=== PATIENT | female | born 1945 | race African-American/Black ===

== ENCOUNTER 2016-11-07 10:17 | Emergency (ER) | payer MEDICARE, OTHER ==
--- NOTE | ~2016-11-07 | EKG ---
PATIENT: MARCO PATIÑO UNIT #: [id number] Ventricular Rate: 73 BPM Atrial Rate: 73 BPM P-R Interval: 242 ms QRS Duration: 100 ms Q-T Interval: 416 ms QTC Calculation(Bezet): 458 ms P [place]: 67 degrees Calculated R [place]: -55 degrees Calculated T [place]: 159 degrees Diagnosis Line: Sinus rhythm with 1st degree A-V block with Diagnosis Line: Premature ventricular complexes Diagnosis Line: Left anterior fascicular block Diagnosis Line: ST and T wave abnormality, consider lateral ischemia Diagnosis Line: Abnormal ECG Diagnosis Line: No previous ECGs available Diagnosis Line: Confirmed by LENO ZEPEDA MD ([id number]) on 11/08/2016 Diagnosis Line: 7:30:49 AM INTERPRETING MD: KATELYN FREGOSO
--- NOTE | ~2016-11-07 | CR72 ---
[facility] A Service of [facility] & [facility] RADIOLOGY TEXT RESULTS PATIENT: MARCO PATIÑO LOCATION: [facility] : 49 UNIT #: [id number] AGE: [address]: Felix Webb MD SEX: F ORDER DR: [id number] [facility] [address] [place], [place] [address] [id number] E MR#: [id number] #: [id number] NAME: MARCO PATIÑO : 1945 SEX: F STUDY DATE/TIME: 11/07/2016 11:20 UNIT: [facility] ROOM: STUDY DESCRIPTION: CR Chest Single View Portable Attending Physician: Felix Webb M.D. Ordering Physician: Felix Webb M.D. Primary Care Physician: Orlando Thomas Sr., M.D. MEDICAL IMAGING REPORT This report is preliminary unless electronic signature is present EXAM Chest portable 11/07/2016 1120 hours HISTORY 2-week history of shortness of air with cough and chest pain, productive cough. COMPARISON 04/02/2015 FINDINGS Portable upright chest demonstrates heart size within normal limits. There is a mildly tortuous aorta. The pulmonary vascularity is normal. The lungs appear clear. There is suggested blunting of both costophrenic sulci which could represent new small effusions. IMPRESSION There is mild blunting of both costophrenic sulci suggesting small pleural effusions or pleural thickening appearing new from 04/02/2015. The lungs appear clear of acute densities. Dictated by... Brigid Og M.D. THIS IS AN ELECTRONICALLY VERIFIED REPORT Brigid Og M.D. at 11/07/2016 2:33 PM CARLITOS/humberto TD: 11/07/2016 13:48 JOB #: [id number] MEDICAL IMAGING REPORT Page 1 of 1 COPY
[~2016-11-07 10:17] MED LIST: DARVOCET-N 1001 TAB PO; FLEXERIL10 MG PO; IMITREX50 MG PO; TOPAMAX25 MG PO
[2016-11-07 10:48] LABS: BASOPHIL% 0.2 % (0-2.5); EOSINOPHIL# 0.1 X10e3 (0-0.7); EOSINOPHIL% 2.6 % (0.0-7.0); HEMATOCRIT 35.7 % (35.0-45.0); HEMOGLOBIN 11.6 gm/dL (12.0-16.0); LYMPHOCYTE# 1.3 X10e3 (1.0-3.5); LYMPHOCYTE% 26.6 % (17.0-45.0); MEAN CELL VOLUME 94.2 FL (83-96); MEAN CORPUSCULAR HEMOGLOBIN 30.6 PG (28-34); MEAN CORPUSCULAR HGB CONC 32.5 g/dL (30-36); MEAN PLATELET VOLUME 7.7 FL (6.5-11.5); MONOCYTE# 0.2 X10e3 (0-1.0); MONOCYTE% 4.5 % (3.0-12.0); NEUTROPHIL# 3.2 X10e3 (1.5-7.1); NEUTROPHIL% 66.1 % (40-75); PLATELET COUNT 269 X10e3 (140-420); RED BLOOD COUNT 3.79 X10e (3.90-5.30); RED CELL DISTRIBUTION WIDTH 14.6 % (11.0-15.5); WHITE BLOOD COUNT 4.8 X10e3 (4.0-10.5)
[2016-11-07 10:50] LABS: DIFF IND NO
[2016-11-07 11:26] LABS: ALBUMIN SERUM 3.9 g/dL (3.5-5.0); ALKALINE PHOSPHATASE 79 U/L (32-92); ALT (SGPT) 15 U/L (10-40); AST (SGOT) 21 U/L (10-42); BILIRUBIN,TOTAL 0.6 mg/dL (0.2-2.0); BLOOD UREA NITROGEN 13 mg/dL (9-23); BUN/CREATININE RATIO 14.44; CARBON DIOXIDE 28 mmol/L (22-31); CHLORIDE 106 mmol/L (100-111); CREATININE SERUM 0.9 mg/dL (0.6-1.4); GLOM FILT RATE Estimated 76.2 mL/min (>60); GLUCOSE FASTING 91 mg/dL (70-110); POTASSIUM 3.9 mmol/L (3.5-5.1); PROTEIN TOTAL SERUM 7.2 g/dL (6.0-8.3); SODIUM 140 mmol/L (135-145)
[2016-11-07 11:27] LABS: BILIRUBIN, DIRECT <0.1 mg/dL (0.0-0.2); BILIRUBIN,INDIRECT 0.5 mg/dL (0.0-0.9)
[2016-11-07 11:30] LABS: POC - CKMB 1.9 ng/mL (0.0-7.9); POC - TROPONIN <0.05 ng/mL (<=0.05)
== END 2016-11-07 12:05 | disposition home or self-care (01) ==
LOC: CED 10:17
PROVIDERS: Emergency Medicine
DX: R07.9 Chest pain, unspecified (principal); R06.02 Shortness of breath; I10 Essential (primary) hypertension; J44.9 Chronic obstructive pulmonary disease, unspecified; F17.200 Nicotine dependence, unspecified, uncomplicated; Z98.890 Other specified postprocedural states; Z79.82 Long term (current) use of aspirin
CPT/HCPCS: 36415; 71010; 80048; 80076; 82553; 84484; 85025; 93005; 99285